=== PATIENT | female | born 1955 | race Caucasian/White ===

== ENCOUNTER 2018-12-26 12:37 | Emergency (ER) | payer MEDICARE, OTHER ==
[2018-12-26 12:46] VITALS: RESP 16; TEMP 97.4
[2018-12-26] MEDS ORDERED: Acetaminophen-Codeine 300-30mg TAB PO STA (13:00)
[2018-12-26] MEDS ORDERED: IBUPROFEN 800 MG TAB PO STA (13:00)
[2018-12-26] MEDS ORDERED: ACET/COD 300 MG/30 MG STARTER PACK 6 TAB BTL PO STA (13:00)
--- NOTE | 2018-12-26 13:01 | ED ---
Back Pain HPI - General Chief Complaint: Back Pain/Injury Stated Complaint: Back pain Time Seen by Provider: 12/26/18 12:48 Source: patient, RN notes reviewed, old records reviewed Limitations: no limitations - History of Present Illness Initial Comments: This is a 63-year-old female the ER for evaluation. Patient does say for evaluation of back pain severe lumbar back pain worse with movement, pain radiates from her right side other Dr. front. No medical history takes no medication. Pain is worse with movement. No loss of bowel or bladder, no neurological complaints. denies trauma. No fever MD Complaint: back pain, other (No injury) -: days(s) (10) Similar Symptoms Previously: No Place: home Radiation: abdomen, groin, right leg Severity: moderate Severity scale (1-10): 7 Quality: aching Consistency: constant Improves With: immobilization Worsens With: movement, walking Context: while lifting Associated Symptoms: denies other symptoms - Related Data Home Medications Medication Instructions Recorded Confirmed Ascorbic Acid [Vitamin C] 500 mg PO DAILY 12/26/18 12/26/18 Atorvastatin [Lipitor] 40 mg PO HS 12/26/18 12/26/18 Cholecalciferol [Vitamin D3] 1,000 unit PO DAILY 12/26/18 12/26/18 Cyanocobalamin (Vitamin B-12) 1,000 mcg PO DAILY 12/26/18 12/26/18 [Vitamin B-12] Fenofibrate,Micronized 134 mg PO HS 12/26/18 12/26/18 [Fenofibrate] Ibuprofen [Advil] 400 mg PO Q8HR PRN 12/26/18 12/26/18 Meloxicam [Mobic] 7.5 mg PO HS 12/26/18 12/26/18 Multivit-Min/FA/Lycopen/Lutein 1 tab PO DAILY 12/26/18 12/26/18 [Centrum Silver Tablet] Omeprazole 20 mg PO DAILY 12/26/18 12/26/18 Sertraline [Zoloft] 25 mg PO HS 12/26/18 12/26/18 Zolpidem [Ambien] 5 mg PO HS PRN 12/26/18 12/26/18 Allergies Allergy/AdvReac Type Severity Reaction Status Date / Time Penicillins Allergy Rash/Hives Verified 12/26/18 13:00 sulfamethoxazole Allergy Anaphylaxis Verified 12/26/18 13:00 [From Bactrim] trimethoprim [From Bactrim] Allergy Anaphylaxis Verified 12/26/18 13:00 Review of Systems ROS Statement: Those systems with pertinent positive or pertinent negative responses have been documented in the HPI. ROS Other: All systems not noted in ROS Statement are negative. Past Medical History Additional Past Medical History / Comment(s): hypercholestremia. History of Any Multi-Drug Resistant Organisms: None Reported Past Surgical History: Appendectomy, Orthopedic Surgery, Tonsillectomy Past Psychological History: No Psychological Hx Reported Smoking Status: Current every day smoker Past Alcohol Use History: None Reported Past Drug Use History: None Reported General Exam - General Exam Comments Initial Comments: Patient does have some lumbar tenderness or paraspinal rating around right abdomen Limitations: no limitations General appearance: alert, in no apparent distress Head exam: Present: atraumatic, normocephalic, normal inspection Eye exam: Present: normal appearance, PERRL, EOMI. Absent: scleral icterus, conjunctival injection, periorbital swelling ENT exam: Present: normal exam, mucous membranes moist Neck exam: Present: normal inspection. Absent: tenderness, meningismus, lymphadenopathy Respiratory exam: Present: normal lung sounds bilaterally. Absent: respiratory distress, wheezes, rales, rhonchi, stridor Cardiovascular Exam: Present: regular rate, normal rhythm, normal heart sounds. Absent: systolic murmur, diastolic murmur, rubs, gallop, clicks GI/Abdominal exam: Present: soft, normal bowel sounds. Absent: distended, tenderness, guarding, rebound, rigid Extremities exam: Present: normal inspection, full ROM, normal capillary refill. Absent: tenderness, pedal edema, joint swelling, calf tenderness Back exam: Present: normal inspection Neurological exam: Present: alert, oriented X3, CN II-XII intact Psychiatric exam: Present: normal affect, normal mood Skin exam: Present: warm, dry, intact, normal color. Absent: rash Course Vital Signs 12/26/18 12:41 Temperature 97.4 F L Pulse Rate 65 Respiratory 16 Rate Blood Pressure 148/62 O2 Sat by Pulse 98 Oximetry - Reevaluation(s) Reevaluation #1: 12/26/18 13:09 Medical record is reviewed, no prior history of similar Reevaluation #2: 12/26/18 14:29 This is able to ambulate no neurological deficit Medical Decision Making - Medical Decision Making 63 female the ER for evaluation of back pain. Patient's back pain is improved here in the ER. Patient will be discharged home to follow-up with her primary care Friday which showed he has appointment. - Radiology Data Radiology results: report reviewed (CT pelvis is negative for acute disease), image reviewed Disposition Clinical Impression: Acute low back pain Disposition: HOME SELF-CARE Instructions (If sedation given, give patient instructions): Acute Low Back Pain (ED) Is patient prescribed a controlled substance at d/c from ED?: No Referrals: Nonstaff,Physician [Primary Care Provider] - 1-2 days
--- NOTE | 2018-12-26 14:18 | CT ---
EXAMINATION TYPE: CT abdomen pelvis wo con DATE OF EXAM: 12/26/2018 COMPARISON: None HISTORY: Rt side back/flank pain. injury [address] DLP: 441.4 mGycm Automated exposure control for dose reduction was used. TECHNIQUE: Helical acquisition of images was performed from the lung bases through the pelvis. FINDINGS: There is some patchy atelectasis at the lung bases. There is no pleural effusion. There is no pericar dial effusion. Liver and spleen appear normal. Bile ducts are not dilated. Stomach appears normal. There is no evide nce of pancreatic mass. There is no adrenal mass. Kidneys show normal size and contour. There is no h ydronephrosis. Ureters are not dilated. There is no retroperitoneal adenopathy. Bladder distends smoo thly. There is no free fluid in the pelvis. There is no inguinal hernia. Uterus is anteverted. There are spondylotic changes in the lumbar spine at L2-3. There is no compression fracture. There is no fr ee air. There is no ascites. There is no mesenteric edema. Appendix is not seen. There is no sign of appendicitis. There is no evidence of spinal fracture. Bony pelvis appears intact. Hip joints are int act. There are a few sigmoid diverticula. IMPRESSION: THERE IS MILD DIVERTICULOSIS WITHOUT DIVERTICULITIS. NO SIGN OF ACUTE ABDOMEN AND PELVIS. SCARRING AND ATELECTASIS AT THE LUNG BASES.
[2018-12-26] MEDS ORDERED: DIAZEPAM 5 MG TAB PO STA (14:37)
[2018-12-26 14:46] VITALS: BP 124/73; PULSE 58
== END 2018-12-26 14:44 | disposition home or self-care (01) ==
LOC: EC 12:37
DX: M54.5 Low back pain (principal); E78.00 Pure hypercholesterolemia, unspecified; F17.200 Nicotine dependence, unspecified, uncomplicated; Z79.1 Long term (current) use of non-steroidal anti-inflammatories (NSAID); Z79.899 Other long term (current) drug therapy; Z88.0 Allergy status to penicillin; Z88.2 Allergy status to sulfonamides; Z53.20 Procedure and treatment not carried out because of patient's decision for unspecified reasons
CPT/HCPCS: 74176; 99284

== ENCOUNTER → 2024-08-09 | Outpatient (CLI) | payer MEDICARE, OTHER ==
--- NOTE | 2024-08-09 12:21 | US ---
EXAMINATION TYPE: US kidneys/renal and bladder DATE OF EXAM: 08/09/2024 COMPARISON: 12/26/2018 CLINICAL INDICATION: Female, 69 years old with history of N28.1 CYST OF KIDNEY, ACQUIRED; Cyst TECHNIQUE: Grayscale and color Doppler imaging of the bilateral kidneys and urinary bladder: FINDINGS: EXAM MEASUREMENTS: Right Kidney: 11.7x4.7x5.8 cm Left Kidney: 11.6x5.4x5.0 cm Right Kidney: No hydronephrosis or masses seen right renal cyst measuring up to 2.0 cm which is anec hoic with posterior acoustic enhancement. Left Kidney: No hydronephrosis or masses seen Bladder: wnl Bilateral Jets seen: Yes There is no evidence for hydronephrosis at this point in time. No nephrolithiasis is seen. No pam s are identified. The urinary bladder is anechoic. IMPRESSION: No evidence for obstructive uropathy or calculus. Simple appearing right renal cyst. [facility], , 08/09/2024 12:19 PM
== END | disposition home or self-care (01) ==
LOC: RADUSWWP 11:27
PROVIDERS: ATTEND Urology
DX: N28.1 Cyst of kidney, acquired (principal)
CPT/HCPCS: 76770

== ENCOUNTER → 2024-09-06 | Outpatient (CLI) | payer MEDICARE, OTHER ==
--- NOTE | 2024-09-06 15:35 | CTL ---
EXAMINATION TYPE: CT Low Dose Lung DATE OF EXAM ORDERED: 09/06/2024 COMPARISON: None CLINICAL INDICATION: Female, 69 years old with history of Z12.2 ENCNTR SCREEN FOR MALIGNANT NEOPLASM OF RESP; PHH, Former smoker- 2 ppd x 40 years. Currently vapes., Lung cancer screening, History of Sm oking/tobacco use. TECHNIQUE: Low dose computed tomography scan was performed through the chest at 1 mm thick sections a nd reconstructed images in multiple planes at 1 mm and [address] DLP: [address] CTDI: 2.22 mGy Automated exposure control for dose reduction was used. CT DIAGNOSTIC QUALITY: Satisfactory FINDINGS: There is no suspicious lung mass or nodule. There is no abnormal airspace consolidation or abnormal interstitial density. There is no pleural effusion or pneumothorax. The great vessels chest normal. There is no mediastinal, hilar or axillary adenopathy. Limited scanning through the upper abdomen reveals no gross abnormality. No focal osseous lesions are seen. IMPRESSION: 1. Lung RADS category 1 negative. Continue routine screening yearly intervals. 2. No acute cardiopulmonary disease. [facility], , 09/06/2024 3:33 PM
== END | disposition home or self-care (01) ==
LOC: RADCTMAIN 15:01
PROVIDERS: ATTEND Family Medicine
DX: Z12.2 Encounter for screening for malignant neoplasm of respiratory organs (principal); Z87.891 Personal history of nicotine dependence
CPT/HCPCS: 71271